=== PATIENT | female | born 1985 | race Hispanic/Latino ===

== ENCOUNTER 2019-03-16 01:05 | Inpatient (IN) | payer OTHER ==
[2019-03-16 01:47] VITALS: BMI 44.4
--- NOTE | 2019-03-16 02:41 | PDOC.LDHP ---
Labor and Delivery H&P Allergies/Adverse Reactions: Allergies Allergy/AdvReac Type Severity Reaction Status Date / Time No Known Allergies Allergy Unverified 03/16/19 01:48 - Plan -: PCP: James HPI: This is a 34 yo at 38.6 wks presenting for contractions which started 1.5 hours prior to arrival. She states that with her last she went from contractions to delivery in 3 hours so she decided to come in states. States she is feeling contractions every 2-3 minutes. She affirms movement, denies cxns, ROM, bleeding/discharge. Denies FAROOQ, visual changes, SOB, or swelling. History: OB hx: term x3, uncomplicated PMH: neg PSH: neg Meds: PNV Soc Hx: denies smoking, alcohol, drugs Fam Hx: denies downs, congenital defects Blood type: A+ Abs screen neg Hep b neg RPR/HIV neg Rubella immune PAP ASCUS HPV neg GC/CT neg Quad: refused GBS: neg 1 hr GCT: 124 REVIEW OF SYSTEMS: Gen: no fever, chills, or sweats Neuro: no numbness/tingling, no weakness, denies headache Eyes: no visual changes ENT: no hearing changes, no sore throat, no runny nose Resp: no cough, no SOB, no wheeze Card: denies chest pain, no palpitations GI: no N/V/D, no abdominal pain : no dysuria, no hematuria MSK: no myalgias, no joint pain/stiffness Heme: no easy bruising/bleeding Skin: no rash, no erythema PHYSICAL EXAMINATION: General: NAD, alert and oriented x3 HEENT: PERRLA, EOMI, normal sclera, oropharynx without erythema or exudate Neck: Supple. Full ROM. Heart/Cardiovascular System: RRR, Cap refill < 3 seconds, no rub, no murmur Lungs/Respiratory System: clear to auscultation bilaterally. No increased work of breathing. Room air. Abdomen/Gastro-Intestinal System: no abdominal tenderness, normal bowel sounds, Gravid Extremities: Warm extremities. No cyanosis or edema. Neuro: No gross deficits appreciated. CN 2-12 grossly intact Psychiatry: Awake, Alert and cooperative with exam Skin: No lesions, rashes, or ulcers Musculoskeletal: Full ROM A/P: This is a 34 yo at 38.6 wks presenting for contractions # Term - SVE /-2 @0134 -> 6cm 0315 - GBS neg - Cat 1 strip - will admit for expectant management - patient is undecided on epidural
[2019-03-16] MEDS ORDERED: Lidocaine 1% (PF) 30 ML VIAL SC PRN (03:11)
[2019-03-16] MEDS ORDERED: NS / Oxytocin 40 units/1000ml 1,000 ML IV PRN (03:11)
[2019-03-16] MEDS ORDERED: Ondansetron PF 4 MG/2 ML Vial IVP PRN ×3 (03:11→11:29)
[2019-03-16] MEDS ORDERED: Promethazine HCl 25 MG/ML VIAL IM PRN ×2 (03:11→04:28)
[2019-03-16] MEDS ORDERED: Fentanyl 4 mcg/Bup 0.1% Cadd 100 ML ONE (03:31)
[2019-03-16 03:44] LABS: Mean Corpuscular HGB CONC 33.9 g/dL (32.0-36.0); Mean Corpuscular Hemoglobin 28.8 pg (27.0-31.0); Mean Corpuscular Volume 85.2 fL (78.0-98.0); Mean Platelet Volume 9.9 fL (7.4-10.4); Platelet Count 228 thou/uL (130-400); RBC Distribution Width 13.6 % (11.5-14.5); Red Blood Cell (RBC) Count 4.51 mill/uL (4.20-5.40); White Blood Cell (WBC) Count 9.3 thou/uL (4.8-10.8)
[2019-03-16] MEDS ORDERED: Lactated Ringer's 1,000 ML IV SCH (03:45)
[2019-03-16 04:22] LABS: Syphilis Antibody Nonreactive (Nonreactive); Syphilis Antibody Index 0.06 S/CO (<1.00 Non-Reactive)
[2019-03-16 04:23] LABS: HBSAg Index 0.33 S/CO (0-0.99); Hep B Surf Ag Non-Reactive S/CO (NonReactive)
[2019-03-16] MEDS ORDERED: ePHEDrine/0.9% NaCl/PF SYRINGE 50 mg/10 ml SLOW IVP PRN (04:28)
[2019-03-16] MEDS ORDERED: Naloxone HCl 0.4 mg/ml Vial IVP PRN ×2 (04:28)
[2019-03-16] MEDS ORDERED: diphenhydrAMINE 50 MG/ML VIAL IVP PRN (04:28)
[2019-03-16] MEDS ORDERED: Lactated Ringer's 500 ML IV PRN (04:28)
[2019-03-16] MEDS ORDERED: Eucerin (Mineral Oil/Petrolatum,White) 30 gm Jar TOP PRN (04:28)
[2019-03-16] MEDS ORDERED: Acetaminophen 325 MG TAB PO PRN (04:28)
[2019-03-16] MEDS ORDERED: Communication Order-Pharmacy FS SCH (04:30)
[2019-03-16] MEDS ORDERED: Fentanyl 4 mcg/Bupivacaine 0.1% Cassette 100 ML EPIDURAL SCH (04:30)
[2019-03-16] MEDS ORDERED: Fentanyl 100 MCG/2 ML VIAL ONE (07:55)
--- NOTE | 2019-03-16 09:28 | PDOC.OPDEL ---
OB Operative/Delivery Note - Additional Findings/Plan Compilations/Other Findings: Vaginal Delivery Dictation Guideline Delivering Physician: Dr Palomo Castellano Attending: Dr. Cassi Srivastava Procedure: Spontaneous Vaginal Delivery Anesthesia: epidural QBL: 50 ml Pre-op Diagnosis: 1. Term intrauterine in labor Post-op Diagnosis: 1. Term intrauterine , delivered Indications: A 34y/o female presented in active labor Delivery Note: This is 34yo F @ 39.0 wks who delivered a viable M infant at 0914 on 03/16/19. Following an uneventful antepartum course, a vigorous male was delivered over an intact perineum in the right occipitoanterior position. Anterior Shoulder and then remainder of the body delivered. No nuchal cord. The head was held down and mouth and nares were bulb suctioned. Cord clamped and cut and cord blood collected. Placenta delivered intact in the [place] with a 3 vessel cord noted. Fundal massage was performed and the fundus was firm. The cervix and vagina were inspected and found to be free of lacerations.Infant went to nursery in good condition for routine care. Apgars were 9/9 at 1 & 5 minutes, respectively. Patient tolerated delivery well and went to after routine recovery/care.
[2019-03-16] MEDS ORDERED: Bupivacaine/Epinephrine 0.25% 30 ML VIAL ONE (11:11)
[2019-03-16] MEDS ORDERED: Bupivacaine 0.25% HCL 30 ML VIAL ONE (11:11)
[2019-03-16] MEDS ORDERED: Bisacodyl 10 MG SUPP PR PRN (11:29)
[2019-03-16] MEDS ORDERED: Milk Of Magnesia 30 ML UDCUP PO PRN (11:29)
[2019-03-16] MEDS ORDERED: Adacel (T-DAP) 0.5 ML SYRINGE IM ONE (11:29)
[2019-03-16] MEDS ORDERED: NS / Oxytocin 40 units/1000ml 1,000 ML IV SCH (11:29)
[2019-03-16] MEDS ORDERED: Benzocaine-Menthol 82.5 ML CAN TOP PRN (11:29)
[2019-03-16] MEDS: Ibuprofen 800 MG TAB PO SCH ×2 (13:54→22:02)
[2019-03-16] MEDS: Ferrous Sulfate 325 MG TAB PO SCH (14:05)
[2019-03-16] MEDS: Docusate Calcium (SURFAK) 240 MG CAP PO SCH (22:02)
[2019-03-17] MEDS: Ibuprofen 800 MG TAB PO SCH (05:05)
[2019-03-17 07:52] LABS: Hemoglobin 10.1 g/dL (12.0-16.0); Mean Corpuscular HGB CONC 33.8 g/dL (32.0-36.0); Mean Corpuscular Hemoglobin 29.2 pg (27.0-31.0); Mean Corpuscular Volume 86.4 fL (78.0-98.0); Mean Platelet Volume 9.4 fL (7.4-10.4); Platelet Count 145 thou/uL (130-400); RBC Distribution Width 13.5 % (11.5-14.5); Red Blood Cell (RBC) Count 3.45 mill/uL (4.20-5.40); White Blood Cell (WBC) Count 10.8 thou/uL (4.8-10.8)
--- NOTE | 2019-03-17 08:10 | PDOC.PP ---
Post Progress Note Post Day #: 1 Subjective: No concerns. Minimal pain and lochia. Slight hypotension, asx. PO intake tolerated: yes Flatus: yes Ambulation: yes Vital Signs (12 hours) Temp Pulse Resp BP 03/17/19 05:00 98.0 F 74 18 99/57 L 03/17/19 00:15 98.1 F 76 18 108/55 L Weight Weight 198 lb - Physical Examination General: NAD Cardiovascular: RRR Respiratory: non-labored breathing Abdominal: no distention, appropriately TTP Fundus firm & at: below umbilicus Extremities: negative homans (B) Neurological: no gross focal deficits Psychiatric: A&Ox3, normal affect Result Diagrams: 03/17/19 07:43 Additional Labs: Post Labs Blood Type A POSITIVE 03/16/19 08:34 Hep Bs Antigen Non-Reactive S/CO (NonReactive) 03/16/19 03:28 (1) Vaginal delivery Code(s): O80 - ENCOUNTER FOR FULL-TERM UNCOMPLICATED DELIVERY Status: Acute - Assessment/Plan PPD1 VSSAF Plan for d/c home today when cleared.
[2019-03-17 08:25] VITALS: BP 87/48; TEMP 97.9
[2019-03-17] MEDS: Ferrous Sulfate 325 MG TAB PO SCH (08:25)
[2019-03-17] MEDS: Docusate Calcium (SURFAK) 240 MG CAP PO SCH (08:55)
== END 2019-03-17 12:45 | disposition home or self-care (01) | DRG 807 ==
LOC: L&D/OP 01:05 → L&D 03:25 → 3SW 12:28
PROVIDERS: ADMIT Obstetrics & Gynecology; ATTEND Obstetrics & Gynecology
PROC: 10E0XZZ Delivery of Products of Conception, External Approach (ICD-10-PCS; principal; 2019-03-16)
DX: O80 Encounter for full-term uncomplicated delivery (principal); Z37.0 Single live birth; Z3A.38 38 weeks gestation of pregnancy
CPT/HCPCS: 36415; 51702; 85027; 86780; 86850; 86900; 86901; 87340; 90715; 99285; J2001; J3010; S0020